=== PATIENT | female | born 1965 | race Caucasian/White ===

== ENCOUNTER 2016-07-02 12:22 | Day surgery (SDC) | payer OTHER ==
[~2016-07-02] VITALS: Ht 144.8 cm; Wt 52.1 kg
[~2016-07-02 12:22] MED LIST: OMEP40CA6 PO; RANI-347 PO
[2016-07-02 14:04] VITALS: Ht 144.8 cm; Wt 52.1 kg
[2016-07-02] MEDS ORDERED: QUESTRAN PO (14:17)
[2016-07-02] MEDS ORDERED: METAM PO (14:17)
[2016-07-02] MEDS ORDERED: LIDOCAINE 4% SOLUTION 50 ML BTL ONE (14:43)
[2016-07-02 14:55] VITALS: BP 134/70; PULSE 61; RESP 12
[2016-07-02] MEDS ORDERED: MIDAZOLAM 1 MG/ML 2 ML INJ ONE ×2 (15:04)
[2016-07-02] MEDS ORDERED: FENTAnyl 50 MCG/ML VIAL ONE (15:04)
--- NOTE | 2016-07-02 15:44 | GILP ---
DATE OF PROCEDURE: 07/02/2016 PROCEDURE: Esophagogastroduodenoscopy. SURGEON: Antonino Cotton MD PREOPERATIVE DIAGNOSIS: The patient presenting with history of difficulty in digestion of food, hea rtburn and occasional vomiting. Rule out peptic ulcer disease, esophagitis. POSTOPERATIVE DIAGNOSES: 1. Minimal fundal gastritis. 2. Minimal antral gastritis. Biopsy was done to rule out Helicobacter pylori infection. DESCRIPTION OF PROCEDURE: After the informed written consent was obtained, the patient was asked to lie on the left lateral side, 3 mg Versed and 50 mcg of fentanyl were given as intravenous anesthes ia. When the patient became somnolent, the Olympus video upper endoscope was introduced into the orophar ynx, then into the esophagus. Mucosa of the entire esophagus appeared normal. No reflux esophagiti s noted. Scope at this time was advanced into the stomach. Stomach showed evidence of erythema in the antrum and also erythema in the fundus, indicating mild antral gastritis, fundal gastritis. At this time, biopsy was done from the antrum, the lesser curvature and the fundus to rule out H. pylor i infection. Mucosa of the duodenum was examined up to the end of the third portion, which appeared normal. Endoscope at this time was withdrawn and the procedure was terminated. PLAN: Recommend omeprazole 40 mg a day for 8 weeks. Dictated By: ANTONINO COTTON MD NC/NTS Conf#: [id number] DID#: [id number] CC: ANTONINO COTTON MD; JUDITH ROB MD;*EndCC*
[2016-07-02 15:45] VITALS: BP 101/63; PULSE 66; RESP 16
== END 2016-07-02 16:35 | disposition home or self-care (01) ==
LOC: GIL 12:22
PROVIDERS: ATTEND Internal Medicine Gastroenterology
DX: K29.30 Chronic superficial gastritis without bleeding (principal)
CPT/HCPCS: 43239; 88305; 88312; J2250; J3010; Z7610